=== PATIENT | female | born 1955 | race Caucasian/White ===

== ENCOUNTER 2016-11-24 23:00 | Inpatient (IN) | payer BC, MEDICARE ==
--- NOTE | ~2016-11-24 | DS ---
Discharge Summary [facility] [address] [facility] [place]. [address] NAME: FRANK ARNOLD : 51 STATUS : ADM IN [facility]#: [id number] AGE: 61 ADM/REG DATE : 11/24/16 MR#: [id number] REPORT SERV DATE: 11/27/16 DICTATED BY: Agnieszka IBARRA DATE: 11/27/16 REPORT STATUS : Draft TRANSCRIBED BY: MODL DATE: 11/27/16 ADMISSION DATE: 11/24/2016 DISCHARGE DATE: 11/27/2016 DIAGNOSES AT DISCHARGE: Syncope; acute kidney injury, resolved; morbid obesity; chronic pain syndrome; hypertension; fibromyalgia; hypothyroidism; poorly controlled insulin-requiring diabetes. CONSULTS: None. PROCEDURES: Echocardiogram, carotid ultrasound. BRIEF HOSPITAL COURSE: A 61-year-old female patient was admitted with syncope and acute kidney injury, suspected secondary to orthostasis. The patient's home blood pressure medicine was held. She was gently hydrated with fluids. Echocardiogram showed intact left ventricular function. Carotid ultrasound was negative. The patient's followup labs showed persistently normalizing renal function. On 11/26, the patient did have a low-grade temp. Chest x-ray suggested some atelectasis. The patient had no further evidence of temp with a followup white count and procalcitonin that were normal. On 11/27, she was felt stable to discharge home on her current home medications with close outpatient followup with her primary care provider in approximately one to two weeks. We will recommend that she continue to stay off the lisinopril as her blood pressure currently is normal and this likely was the culprit behind not only her acute kidney injury, but likely that her syncope as well. DICTATED BY: Agnieszka Ibarra M.D. [facility]/DENISSE Agnieszka Ibarra M.D. / [id number] CC: Ky Nelson Jr, MD Punit Tiku Bhutwala, M.D.
--- NOTE | ~2016-11-24 | HP ---
History And Physical [place] [address] [facility] [place]. [address] NAME: FRANK CASTRO : 51 STATUS : ADM Arden PAT#: [id number] AGE: 61 ADM/REG DATE : 11/24/16 MR#: [id number] REPORT SERV DATE: 11/25/16 DICTATED BY: SHERIDAN BRAND DATE: 11/24/16 REPORT STATUS : Draft TRANSCRIBED BY: MODPrasad DATE: 11/24/16 DATE OF ADMISSION: 11/24/2016 POINT OF ENTRY: [facility] Emergency Department. PRIMARY PIANO PLAYER: Dr. Campbell. CHIEF COMPLAINT: Syncope. HISTORY OF PRESENT ILLNESS: Ms. Castro is a 61-year-old female with a history of insulin- dependent diabetes mellitus type 2, chronic pain on chronic narcotics, hypothyroidism, hypertension, and other medical comorbidities, who presents here today with acute onset of a syncopal episode. The patient states that she has had an upper respiratory tract infection with congestion, sneezing, and cough for the past three days. She also reports some subjective fevers and chills. She saw Dr. Rosa in clinic today. Temperature was reportedly afebrile and was prescribed some clindamycin as well as some mucolytics. The patient states that she went to bed as she was not feeling well and then awoke later in the evening feeling sick. She got into her wheelchair to go to the bathroom to have an episode of emesis and after that suffered a witnessed syncopal episode while sitting in her wheelchair. states that she was out for about two to three minutes despite physical stimulation. She denies any loss of bowel or bladder control. Denies any tonoclonic activity, but she was very lethargic and confused upon awakening from her syncopal episode. Initial evaluation in the emergency department notable for EKG that was unremarkable. Labs notable for a blood sugar of 548, creatinine of 2.02. She reportedly did not tilt on exam. She was given five units of IV insulin, some IV fluids for hyperglycemia, and admitted to the Hospitalist Service. The patient denies any recent chest pain, palpitations, shortness of breath, cough, sputum production, abdominal pain, dysuria, melena, hematochezia, hemoptysis, or hematemesis. The patient states that she consumed a milkshake prior to going to bed this afternoon but reports compliance with her insulin regimen and states that up until today her sugars have been well controlled. REVIEW OF SYSTEMS: Comprehensive review of system otherwise negative unless listed in history of present illness. PREVIOUS MEDICAL HISTORY: 1. Insulin-dependent diabetes mellitus, type 2. 2. Fibromyalgia. 3. Chronic pain syndrome, on chronic narcotics. 4. Hypertension. History And Physical [address] [address] NAME: FRANK CASTRO : 51 STATUS : ADM Ar[place] PAT#: [id number] AGE: 61 ADM/REG DATE : 11/24/16 MR#: [id number] REPORT SERV DATE: 11/25/16 DICTATED BY: SHERIDAN BRAND DATE: 11/24/16 REPORT STATUS : Draft TRANSCRIBED BY: DENISSE DATE: 11/24/16 5. Hypothyroidism. 6. Diabetic neuropathy. 7. Asthma. 8. Morbid obesity. 9. Depression. 10.Anxiety. 11.Functional paraplegia, wheelchair bound. 12.MGUS. 13.Pulmonary hypertension. SURGICAL HISTORY: 1. Cholecystectomy. 2. Abdominal hysterectomy. 3. Toe amputation. 4. Umbilical hernia repair. 5. . 6. Right total knee. ALLERGIES: 1. PENICILLIN. 2. CODEINE. 3. ASPIRIN. 4. TETRACYCLINE. 5. FLAGYL. 6. ROCEPHIN. 7. WASP VENOM. HOME MEDICATIONS: 1. Clindamycin 300 mg b.i.d. 2. Flexeril 5 mg b.i.d. 3. Trulicity 1.5 mg subcu weekly. 4. EpiPen p.r.n. 5. Mucinex 600 mg b.i.d. p.r.n. 6. NovoLog 100 units q.a.m. 7. NovoLog carb sliding scale. 8. Lantus 100 units b.i.d. 9. Lisinopril 40 mg daily. 10.MS Contin 30 mg b.i.d. 11.Nortriptyline 75 mg at bedtime. 12.Nortriptyline 75 mg p.r.n. 13.Roxicodone 5 mg q.i.d. p.r.n. 14.[place] Thyroid 180 mg daily. SOCIAL HISTORY: Denies any tobacco, alcohol, or illicits. FAMILY MEDICAL HISTORY: No for diabetes as well as coronary artery disease. History And Physical [address] [address] NAME: FRANK CASTRO : 51 STATUS : ADM Ar[place] PAT#: [id number] AGE: 61 ADM/REG DATE : 11/24/16 MR#: [id number] REPORT SERV DATE: 11/25/16 DICTATED BY: SHERIDAN BRAND DATE: 11/24/16 REPORT STATUS : Draft TRANSCRIBED BY: DENISSE DATE: 11/24/16 LABS AND IMAGIN. White count 6.8, hemoglobin is 11.0, hematocrit 33.8, and platelet count is 173. INR 1.4. 2. Sodium is 132, potassium 4.9, chloride 96, carbon dioxide 27, BUN 20, creatinine 2.02, glucose is 548, calcium is 8.9, and magnesium 1.9. 3. Troponin less than 0.02. 4. Urinalysis. Spec gravity is 1.017. Positive glucose. Negative ketones. Negative evidence of infection. 5. Chest x-ray per my review shows no acute cardiopulmonary abnormality. EKG per my review shows normal sinus rhythm with left axis deviation as well as intraventricular conduction delay which is unchanged compared to prior EKGs. No evidence of any acute ischemic infarction. PHYSICAL EXAMINATION: VITAL SIGNS: Temperature is 98.0 degrees Fahrenheit, pulse is 96, respirations 18, saturating 97% on room air. Blood pressure is 139/69, on recheck blood pressure is now 136/67. Pulse of 94. GENERAL: The patient is awake, alert, in no acute distress. Resting comfortably in bed. She is a morbidly obese female. is at bedside. HEENT: Atraumatic and normocephalic. Slightly dry mucous membranes. Pupils equal, round, and reactive to light and accommodation. Extraocular eye movements intact. No scleral icterus. NECK: No jugular venous distention. No carotid bruits. CARDIAC: Regular rate and rhythm. Faint 1/6 systolic murmur heard best over left lower sternal border. LUNGS: Clear to auscultation bilaterally. No wheezes, rhonchi, or crackles. ABDOMEN: Obese with presence of ventral hernia, but otherwise, soft, nontender, and nondistended with good bowel sounds. No rebound, guarding, or rigidity. EXTREMITIES: Warm and perfused. She has some chronic venous stasis type changes or stasis dermatitis. Trace lower extremity edema. SKIN: Warm and dry except for noted above. PSYCH: Affect appropriate. NEURO: Alert and oriented x3. Cranial nerves 2 through 12 grossly intact. Speech is normal. Gait not assessed. ASSESSMENT: Ms. Castro is a 61-year-old female who suffered a witnessed syncopal episode in her wheelchair in the setting of having some nausea and vomiting concerning for likely vasovagal syncope. PROBLEM LIST: 1. Syncope. 2. Uncontrolled insulin-dependent diabetes mellitus type 2 with hyperglycemia. 3. Acute kidney injury versus chronic kidney stage 3. 4. Chronic pain, on chronic narcotics. 5. Hypothyroidism. 6. Morbid obesity. 7. Functional paraplegia. History And Physical [address] [address] NAME: FRANK CASTRO : 51 STATUS : ADM Ar[place] PAT#: [id number] AGE: 61 ADM/REG DATE : 11/24/16 MR#: [id number] REPORT SERV DATE: 11/25/16 DICTATED BY: SHERIDAN BRAND DATE: 11/24/16 REPORT STATUS : Draft TRANSCRIBED BY: DENISSE DATE: 11/24/16 PLAN: 1. Syncope. Given the history this sounds like vasovagal syncope. However, the states that she was somewhat lethargic and confused upon awaking concerning for possible postictal type symptoms. We will check orthostatic vital signs, echocardiogram, carotid arterial Dopplers. Continue cardiac monitoring. Trend out cardiac enzymes. We will also order an EEG. 2. Uncontrolled insulin-dependent diabetes mellitus type 2 with hyperglycemia. The patient is on very high doses of insulin, which we will need to be confirmed in the morning by pharmacy. In the meantime, we will place the patient on insulin drip. Check hemoglobin A1c as well as diabetes consultation. 3. Acute kidney injury versus chronic kidney stage 3. Our last baseline creatinine for patient is from 2014, which showed a creatinine of 1.84. The patient is unable to tell me what her baseline creatinine is now. We will hold nephrotoxic medications, provide IV fluid hydration, and follow up repeat in the morning. 4. Chronic pain, on chronic narcotics. Continue the patient's home narcotics. We will hold for sedation. 5. DVT prophylaxis. Lovenox subcu. CODE STATUS: The patient wished to be full code. JCB/MODL Sheridan Brand MD / [id number] CC: Ky Nelson Jr, MD Punit Tiku Bhutwala, M.D.
[2016-11-24 22:28] LABS: BASOPHILS 0.1 %; BASOPHILS ABSOLUTE 0.01 10/3/uL (0.0-0.16); EOSINOPHILS ABSOLUTE 0.07 10/3/uL (0.0-0.53); ER CBC TAT 0 Hrs 05 Mins; HEMATOCRIT 33.8 % (36.0-48.0); IMMATURE GRANULOCYTES 0.1 %; IMMATURE GRANULOCYTES ABSOLUTE 0.01 10/3/uL (0.0-0.11); LYMPHOCYTES 22.6 %; LYMPHOCYTES ABSOLUTE 1.54 10/3/uL (0.67-4.30); MEAN CORPUS HGB CONC 32.5 g/dL (32.0-36.0); MEAN CORPUSCULAR HEMOGLOB 29.3 pg (26.0-34.0); MEAN PLATELET VOLUME 9.5 fL (9.2-13.0); MONOCYTES 9.5 %; MONOCYTES ABSOLUTE 0.65 10/3/uL (0.21-1.20); NEUTROPHILS 66.7 %; NEUTROPHILS ABSOLUTE 4.54 10/3/uL (2.02-8.40); PLATELET COUNT 173 10/3/uL (150-400); RBC DISTRIBUTION WIDTH 13.6 % (12.0-16.0); RED CELL COUNT 3.76 10/6/uL (4.0-5.6); WHITE BLOOD CELLS 6.8 10/3/uL (4.5-10.5)
[2016-11-24 22:29] LABS: MANUAL DIFF NO %; MEAN CORPUSCULAR VOLUME 89.9 fL (80-100)
[2016-11-24 22:35] LABS: INTERNATIONAL NORMAL RATI 1.4 UNITS (-); PARTIAL THROMBO TIME 33.4 SEC (22.5-37.2); PROTIME (NOT ORD) 16.6 SEC (12.0-14.5)
[2016-11-24 22:36] LABS: ASCORBIC ACID (UR NOT ORDER) NEG (NEG); BILIRUBIN, URINE NEGATIVE (NEG); ER URINALYSIS TAT 0 Hrs 13 Mins; KETONE, URINE NEGATIVE (NEG); LEUKOCYTE ESTERASE(NOT OR NEG (NEG); NITRITE (URINE) NEG (NEG); WBC (NOT ORDERED) (RFLEX) 3 (0-5)
[2016-11-24 22:45] LABS: BUN (BLOOD UREA NITROGEN) 28 MG/DL (6-23); CALCIUM, SERUM 8.9 MG/DL (8.5-10.4); CHEST PAIN PROFILE TAT 0 Hrs 22 Mins; CHLORIDE, SERUM 96 MMOL/L (96-112); CO2 (CARBON DIOXIDE) 27 MMOL/L (24-34); CREATININE 2.02 MG/DL (0.55-1.02); GFR AFRICAN AMERICAN 30 ML/MIN (>=60); GFR NON AFRICAN AMERICAN 26 ML/MIN (>=60); GLUCOSE, SERUM 548 MG/DL (60-99); POTASSIUM, SERUM 4.9 MMOL/L (3.5-5.3); SODIUM, SERUM 132 MMOL/L (135-148); TROPONIN I <0.02 NG/ML (<0.05)
[~2016-11-24 23:00] MED LIST: *UNABLE3; AVANDAMET PO; HUMALOG; HUMALOGPEN SC; HYGROTON 25 MG25 MG PO; KLONO2 PO; LANTUS; LANTUS SC; LANTUSCART SC; LEVOTHYROXIN200 MCG PO; LEVOTHYROXINE PO; LIPITOR40 PO; LISINOPRIL40 MG PO; MAGOX4 PO; MSCONT15 PO; MSCONTIN PO; NEUR800 PO; NOR25 PO; PCET PO; PERCOCET1 TA4 PO; PREM625 PO; PRIN10 PO; SYN125 PO; V5 PO; VALIUM10 MG PO; WELLXL300 PO
[2016-11-24] MEDS ORDERED: CLEOCIN300 MG PO (23:05)
[2016-11-24] MEDS ORDERED: FLEXERIL5 MG PO (23:06)
[2016-11-24] MEDS ORDERED: TRULICITY1.5 MG/0.5 SC (23:06)
[2016-11-24] MEDS ORDERED: MSCONTIN PO (23:07)
[2016-11-24] MEDS ORDERED: NOR75 PO ×2 (23:08)
[2016-11-24] MEDS ORDERED: OXYCOD PO (23:09)
[2016-11-24] MEDS ORDERED: ARMOUR THYRO180 MG PO (23:09)
[2016-11-24] MEDS ORDERED: NOVOPEN SC ×2 (23:10→23:11)
[2016-11-24] MEDS ORDERED: LISINOPRIL40 MG PO (23:12)
[2016-11-24] MEDS ORDERED: LANTUS SC (23:12)
[2016-11-24] MEDS ORDERED: MUCINEX600 MG PO (23:14)
[2016-11-24] MEDS ORDERED: EPIPEN0.3 IM (23:17)
[2016-11-25 06:35] LABS: BASOPHILS 0.2 %; BASOPHILS ABSOLUTE 0.01 10/3/uL (0.0-0.16); EOSINOPHILS 1.6 %; EOSINOPHILS ABSOLUTE 0.09 10/3/uL (0.0-0.53); HEMOGLOBIN 10.6 g/dL (12.0-16.0); IMMATURE GRANULOCYTES 0.2 %; IMMATURE GRANULOCYTES ABSOLUTE 0.01 10/3/uL (0.0-0.11); LYMPHOCYTES 35.8 %; LYMPHOCYTES ABSOLUTE 2.05 10/3/uL (0.67-4.30); MEAN CORPUS HGB CONC 33.1 g/dL (32.0-36.0); MEAN CORPUSCULAR HEMOGLOB 29.6 pg (26.0-34.0); MEAN CORPUSCULAR VOLUME 89.4 fL (80-100); MEAN PLATELET VOLUME 9.6 fL (9.2-13.0); MONOCYTES 13.8 %; MONOCYTES ABSOLUTE 0.79 10/3/uL (0.21-1.20); NEUTROPHILS 48.4 %; NEUTROPHILS ABSOLUTE 2.77 10/3/uL (2.02-8.40); PLATELET COUNT 165 10/3/uL (150-400); RBC DISTRIBUTION WIDTH 13.4 % (12.0-16.0); RED CELL COUNT 3.58 10/6/uL (4.0-5.6); WHITE BLOOD CELLS 5.7 10/3/uL (4.5-10.5)
[2016-11-25 06:36] LABS: MANUAL DIFF NO %
[2016-11-25 06:56] LABS: ALBUMIN 2.7 G/DL (3.5-5.0); BUN (BLOOD UREA NITROGEN) 27 MG/DL (6-23); CALCIUM, SERUM 8.9 MG/DL (8.5-10.4); CHLORIDE, SERUM 104 MMOL/L (96-112); CK-MB 1.1 NG/ML; CO2 (CARBON DIOXIDE) 24 MMOL/L (24-34); CPK 26 U/L (0-200); CREATININE 1.49 MG/DL (0.55-1.02); FREE T4 0.93 NG/DL (0.76-1.46); GFR AFRICAN AMERICAN 43 ML/MIN (>=60); GFR NON AFRICAN AMERICAN 37 ML/MIN (>=60); GLUCOSE, SERUM 191 MG/DL (60-99); PHOSPHORUS, SERUM 3.2 MG/DL (2.5-4.5); POTASSIUM, SERUM 4.3 MMOL/L (3.5-5.3); SODIUM, SERUM 137 MMOL/L (135-148); TROPONIN I <0.02 NG/ML (<0.05); ULTRASENSITIVE TSH 0.054 MCIU/ML (0.358-3.740)
[2016-11-25 08:07] LABS: CREATININE, URINE 93.8 MG/DL
[2016-11-25 14:40] LABS: CPK 25 U/L (0-200); TROPONIN I <0.02 NG/ML (<0.05)
[2016-11-25 14:41] LABS: CK-MB < 0.5 NG/ML
[2016-11-26 06:29] LABS: BASOPHILS 0.2 %; BASOPHILS ABSOLUTE 0.01 10/3/uL (0.0-0.16); EOSINOPHILS 1.2 %; EOSINOPHILS ABSOLUTE 0.08 10/3/uL (0.0-0.53); HEMATOCRIT 35.2 % (36.0-48.0); HEMOGLOBIN 11.7 g/dL (12.0-16.0); IMMATURE GRANULOCYTES 0.2 %; IMMATURE GRANULOCYTES ABSOLUTE 0.01 10/3/uL (0.0-0.11); LYMPHOCYTES ABSOLUTE 2.19 10/3/uL (0.67-4.30); MEAN CORPUS HGB CONC 33.2 g/dL (32.0-36.0); MEAN CORPUSCULAR HEMOGLOB 29.9 pg (26.0-34.0); MEAN PLATELET VOLUME 9.5 fL (9.2-13.0); MONOCYTES 7.4 %; MONOCYTES ABSOLUTE 0.48 10/3/uL (0.21-1.20); NEUTROPHILS ABSOLUTE 3.68 10/3/uL (2.02-8.40); PLATELET COUNT 177 10/3/uL (150-400); RBC DISTRIBUTION WIDTH 13.5 % (12.0-16.0); RED CELL COUNT 3.91 10/6/uL (4.0-5.6); WHITE BLOOD CELLS 6.5 10/3/uL (4.5-10.5)
[2016-11-26 06:31] LABS: MANUAL DIFF NO %
[2016-11-26 06:44] LABS: CALCIUM, SERUM 9.1 MG/DL (8.5-10.4); CHLORIDE, SERUM 102 MMOL/L (96-112); CO2 (CARBON DIOXIDE) 25 MMOL/L (24-34); CREATININE 1.18 MG/DL (0.55-1.02); GFR AFRICAN AMERICAN 57 ML/MIN (>=60); GFR NON AFRICAN AMERICAN 49 ML/MIN (>=60); GLUCOSE, SERUM 176 MG/DL (60-99); POTASSIUM, SERUM 5.1 MMOL/L (3.5-5.3); SODIUM, SERUM 134 MMOL/L (135-148)
[2016-11-26 06:45] LABS: BUN (BLOOD UREA NITROGEN) 18 MG/DL (6-23)
[2016-11-26 22:12] LABS: ASCORBIC ACID (UR NOT ORDER) NEG (NEG); BILIRUBIN, URINE NEGATIVE (NEG); KETONE, URINE NEGATIVE (NEG); LEUKOCYTE ESTERASE(NOT OR NEG (NEG); WBC (NOT ORDERED) (RFLEX) 3 (0-5)
[2016-11-27 05:40] LABS: BASOPHILS 0.2 %; BASOPHILS ABSOLUTE 0.01 10/3/uL (0.0-0.16); EOSINOPHILS 2.3 %; EOSINOPHILS ABSOLUTE 0.15 10/3/uL (0.0-0.53); HEMATOCRIT 32.2 % (36.0-48.0); HEMOGLOBIN 10.6 g/dL (12.0-16.0); IMMATURE GRANULOCYTES 0.2 %; IMMATURE GRANULOCYTES ABSOLUTE 0.01 10/3/uL (0.0-0.11); LYMPHOCYTES 54.5 %; LYMPHOCYTES ABSOLUTE 3.55 10/3/uL (0.67-4.30); MEAN CORPUS HGB CONC 32.9 g/dL (32.0-36.0); MEAN CORPUSCULAR HEMOGLOB 29.4 pg (26.0-34.0); MEAN CORPUSCULAR VOLUME 89.4 fL (80-100); MEAN PLATELET VOLUME 9.4 fL (9.2-13.0); MONOCYTES 12.3 %; NEUTROPHILS 30.5 %; NEUTROPHILS ABSOLUTE 1.99 10/3/uL (2.02-8.40); PLATELET COUNT 167 10/3/uL (150-400); RBC DISTRIBUTION WIDTH 14.1 % (12.0-16.0); WHITE BLOOD CELLS 6.5 10/3/uL (4.5-10.5)
[2016-11-27 05:42] LABS: MANUAL DIFF NO %
[2017-03-21] MEDS ORDERED: EPIPEN0.3 IM (06:23)
[2017-03-21] MEDS ORDERED: FLEXERIL5 MG PO (06:23)
[2017-03-21] MEDS ORDERED: NOVOPENMIX SC (06:24)
[2017-03-21] MEDS ORDERED: LANTUS SC (06:25)
[2017-03-21] MEDS ORDERED: NOVOLOGMIX SC (06:25)
[2017-03-21] MEDS ORDERED: OXYCOD PO (06:26)
[2017-03-21] MEDS ORDERED: NOR75 PO (06:26)
[2017-03-21] MEDS ORDERED: ARMOUR THYRO180 MG PO (06:27)
[2017-03-21] MEDS ORDERED: LYRICA100 MG PO (06:27)
[2017-03-23] MEDS ORDERED: INSNOVR SC (11:26)
[2017-03-23] MEDS ORDERED: ASAB PO (11:27)
[2017-03-23] MEDS ORDERED: NOVOLOG SQ (11:28)
== END 2016-11-27 17:29 | disposition home or self-care (01) | DRG 683 ==
LOC: ER 23:00 → 5NO 23:59
PROVIDERS: Emergency Medicine; Internal Medicine
DX: N17.9 Acute kidney failure, unspecified (principal); Z68.41 Body mass index [BMI] 40.0-44.9, adult; I95.2 Hypotension due to drugs; I27.2 Other secondary pulmonary hypertension; E11.65 Type 2 diabetes mellitus with hyperglycemia; E66.01 Morbid (severe) obesity due to excess calories; N18.3 Chronic kidney disease, stage 3 (moderate); R55 Syncope and collapse; Z79.4 Long term (current) use of insulin; G89.4 Chronic pain syndrome; Z79.891 Long term (current) use of opiate analgesic; E03.9 Hypothyroidism, unspecified; M79.7 Fibromyalgia; F32.9 Major depressive disorder, single episode, unspecified; F41.9 Anxiety disorder, unspecified; Z90.49 Acquired absence of other specified parts of digestive tract; Z90.710 Acquired absence of both cervix and uterus; Z96.651 Presence of right artificial knee joint; Z88.1 Allergy status to other antibiotic agents; Z88.0 Allergy status to penicillin; I12.9 Hypertensive chronic kidney disease with stage 1 through stage 4 chronic kidney disease, or unspecified chronic kidney disease; T46.4X5A Adverse effect of angiotensin-converting-enzyme inhibitors, initial encounter
CPT/HCPCS: 71010; 80048; 80069; 81001; 82550; 82553; 82570; 82962; 83036; 83735; 83935; 84145; 84300; 84439; 84443; 84484; 85025; 85610; 85730; 87070; 87205; 93005; 93306; 93880; 96374; 99285; A9270-GY

== ENCOUNTER 2016-12-09 23:01 | Inpatient (IN) | payer BC, MEDICARE ==
--- NOTE | ~2016-12-09 | DS ---
Discharge Summary [facility] [address] [place]. [address] NAME: FRANK ARNOLD : 51 STATUS : DIS IN PAT#: [id number] AGE: 61 ADM/REG DATE : 12/10/16 MR#: [id number] REPORT SERV DATE: 12/21/16 DICTATED BY: JR. NELSON WILLIAM JOHN DATE: 12/20/16 REPORT STATUS : Draft TRANSCRIBED BY: DENISSE DATE: 12/20/16 ADMISSION DATE: 12/10/2016 DISCHARGE DATE: 12/20/2016 DISCHARGE DIAGNOSES: Include: 1. Left heel wound. 2. Uncontrolled diabetes mellitus type 2. 3. Essential hypertension. 4. Chronic kidney disease stage III. 5. Chronic pain syndrome. CONSULTING PHYSICIAN: Dr. Sandoval of Wound Surgery. OPERATIONS/PROCEDURES AND TREATMENTS: Include: 1. Bedside debridement by Dr. Sandoval. 2. Portable chest x-ray done, 12/09/2016, which showed no acute cardiopulmonary process. 3. Left foot x-ray done, 12/09/2016, which showed extensive surgical changes of left foot, including amputation of the first and second digits to the metatarsal head. There is no acute bony abnormality appreciated, involving the remaining left foot. There is diffuse bony demineralization. 4. Arterial Doppler ultrasound of the right lower extremity showed no medium or large arterial stenosis of significance or occlusion on this limb. This does not, however, exclude small vessel disease. DISCHARGE MEDICATIONS: Include: 1. Lovenox 40 mg subcutaneously daily. 2. Flonase two sprays in each nostril twice a day. 3. Sliding scale Humalog insulin level 3. 4. Claritin 10 mg orally daily. 5. Morphine sustained release 30 mg twice a day. 6. Nortriptyline 75 mg orally twice a day. 7. Protonix 40 mg orally daily. 8. Trulicity 1.5 mg subcutaneously every seven days. 9. Thyroid 180 mg orally daily. 10.Levemir insulin 100 units twice a day. 11.Tylenol 650 mg every four hours as needed. 12.Mylanta 30 mL orally every four hours p.r.n. 13.Calcium carbonate 500 mg orally at bedtime p.r.n. 14.Flexeril 5 mg orally twice a day as needed. HOSPITAL COURSE: The patient is a 61-year-old white female with a history of poorly controlled diabetes mellitus with associated neuropathy, who presented to the emergency room with one-week history of left calcaneal foot wound. The patient had been admitted to [facility] earlier in the month for a syncopal episode, felt to be vasovagal or orthostatic. Her lisinopril was discontinued. She at that time was also on an insulin drip with blood sugars greater than 500. Her A1c was 10.1. She was subsequently discharged Discharge Summary [address] [place]. [address] NAME: FRANK ARNOLD : 51 STATUS : DIS IN PAT#: [id number] AGE: 61 ADM/REG DATE : 12/10/16 MR#: [id number] REPORT SERV DATE: 12/21/16 DICTATED BY: JR. NELSON WILLIAM JOHN DATE: 12/20/16 REPORT STATUS : Draft TRANSCRIBED BY: DENISSE DATE: 12/20/16 home. She said she bought a new pair of shoes that apparently did not fit her properly since her recent ankle fusion. She developed a blister followed by purulent drainage and presented to the emergency room. On initial exam, her temperature was 97.5, blood pressure was 157/88, heart rate 96, respiratory rate of 18. She was in no acute distress. She did have dorsalis pedis and posterior tibialis pulses intact on both legs. She had a necrotic pressure ulcer in the calcaneal region of her left foot. The patient was admitted to the hospital. She had an arterial Doppler study, which is detailed above. She was placed on empiric Levaquin and was seen in consultation by Wound Care, Dr. Sandoval. Dr. Sandoval performed bedside debridement and recommended dressing changes and offloading. The patient was fitted with her boot. The patient is somewhat debilitated and will go to rehabilitation for further wound care and strengthening. The patient had total antibiotic course of nine days. This was discontinued as there was no evidence of current infection. Regarding the patient's diabetes mellitus type 2, her blood sugars have been fairly well controlled in the 120-170 range predominantly on the above regimen. Regarding the patient's hypertension, it has been well-controlled on no antihypertensives. The remainder of the patient's health problems remained stable. She will be discharged to [facility] today, 12/20/2016 in good condition. DISCHARGE DIET: ADA. ACTIVITY: As tolerated. For discharge exam and laboratory, please see daily progress note. This discharge took 33 minutes for patient encounter, coordination of care, and documentation. DICTATED BY: Ky Nelson Jr, MD WJF/MODL Ky Nelson Jr, MD / [id number] CC: Ky Nelson Jr, MD Punit Tiku Bhutwala, M.D.
--- NOTE | ~2016-12-09 | HP ---
History And Physical [facility] [address] [facility] [place]. [address] NAME: FRANK CASTRO : 51 STATUS : REG ER PAT#: [id number] AGE: 61 ADM/REG DATE : 12/09/16 MR#: [id number] REPORT SERV DATE: 12/10/16 DICTATED BY: SHERIDAN BRAND DATE: 12/10/16 REPORT STATUS : Draft TRANSCRIBED BY: MODPrasad DATE: 12/10/16 DATE OF ADMISSION: 12/09/2016 POINT OF ENTRY: [facility] Emergency Department. PRIMARY CARE PHYSICIAN: Dev Rosa M.D. CHIEF COMPLAINT: Left foot wound. HISTORY OF PRESENT ILLNESS: Ms. Castro is a 61-year-old female with a history of poorly controlled insulin-dependent diabetes mellitus type 2 with associated diabetic neuropathy, morbid obesity, hypertension, hyperthyroidism, and other medical comorbidities who presents to emergency room today with a report of a one-week history of a left calcaneal foot wound. The patient was recently admitted to the Hospitalist Service in earlier this month for a witnessed syncopal episode. Ultimately, it was felt to be due to vasovagal or orthostasis and her lisinopril was discontinued. She had to be placed on insulin drip initially for blood sugar greater than 500, A1c came out of 10.6, and she was subsequently discharged to home. The patient states that she bought a new pair of shoes, that unfortunately due to previous ankle fusion did not fit her left foot properly and she subsequently developed a blister in the calcaneal region of her left foot. This blister has subsequently progressed to now a large area of, what appears to be, a pressure necrosis ulcer along the calcaneal region of the left foot. The patient reports some subjective fevers and chills, but has not checked her temperature. She does report some purulent drainage when the blister pops, but none recently. Initial evaluation in the emergency department was notable for stable vital signs. White count is normal at 9.7. Urinalysis is positive for urinary tract infection. She was subsequently placed on IV vancomycin and admitted to the Hospitalist Service. REVIEW OF SYSTEMS: Comprehensive review of systems otherwise negative unless listed in history of present illness. PREVIOUS MEDICAL HISTORY: 1. Uncontrolled insulin-dependent diabetes mellitus type 2, hemoglobin A1c of 10.6. 2. Hypertension. 3. Hypothyroidism. 4. Chronic pain, on chronic narcotics. 5. Fibromyalgia. 6. Morbid obesity. 7. Asthma. 8. Anxiety. 9. Depression. History And Physical [address] [place]. [address] NAME: FRANK CASTRO : 51 STATUS : REG ER PAT#: [id number] AGE: 61 ADM/REG DATE : 12/09/16 MR#: [id number] REPORT SERV DATE: 12/10/16 DICTATED BY: SHERIDAN BRAND DATE: 12/10/16 REPORT STATUS : Draft TRANSCRIBED BY: DENISSE DATE: 12/10/16 10.Pulmonary hypertension. 11.Functional paraplegia. 12.Diabetic neuropathy. 13.Chronic kidney disease, stage 3, baseline creatinine approximately 1.2 to 1.4. SURGICAL HISTORY: 1. Cholecystectomy. 2. Abdominal hysterectomy. 3. . 4. Umbilical hernia repair. 5. Left first and second toe amputation. 6. Right total knee. ALLERGIES: 1. PENICILLIN. 2. CODEINE. 3. ASPIRIN. 4. TETRACYCLINE. 5. FLAGYL. 6. ROCEPHIN. 7. BEE STING. HOME MEDICATIONS: 1. Flexeril 5 mg b.i.d. p.r.n. 2. Trulicity 1.5 mg subcutaneously every week. 3. EpiPen 0.3 mg IM p.r.n. 4. NovoLog 100 units q.a.m. 5. NovoLog sliding scale. 6. Lantus 100 units b.i.d. 7. [place] Contin 30 mg b.i.d. 8. Nortriptyline 75 mg b.i.d. 9. Oxycodone 5 mg q.i.d. p.r.n. 10.[place] Thyroid 180 mg daily. SOCIAL HISTORY: Denies any tobacco, alcohol, or illicits. FAMILY HISTORY: Notable for diabetes and coronary artery disease. LABS AND IMAGIN. White count is 9.7, hemoglobin 12.5, hematocrit 36.3, platelet count is 288. 2. Sodium is 138, potassium 4.0, chloride 104, carbon dioxide 29, BUN 21, creatinine 1.29, glucose is 78, calcium is 9.2, protein is 8.6, albumin is 3.4, bilirubin is 0.3, ALT is 27, AST 28, alkaline phosphatase is 133. 3. CRP 7.4. 4. Urinalysis: Specific gravity is 1.017, hazy with small leukocyte esterase with 16 white blood cells per high field with occasional bacteria. 5. Chest x-ray per my review shows no acute cardiopulmonary abnormality. History And Physical [address] [address] NAME: FRANK CASTRO : 51 STATUS : REG ER PAT#: [id number] AGE: 61 ADM/REG DATE : 12/09/16 MR#: [id number] REPORT SERV DATE: 12/10/16 DICTATED BY: SHERIDAN BRAND DATE: 12/10/16 REPORT STATUS : Draft TRANSCRIBED BY: DENISSE DATE: 12/10/16 6. Left foot plain films do not show any obvious evidence of osteomyelitis per my review. Follow up formal read. PHYSICAL EXAMINATION: VITAL SIGNS: Temperature is 97.5 degrees Fahrenheit, pulse is 96, respirations 18, saturating 96% on room air, blood pressure 157/88. GENERAL: Patient is awake, alert, in no acute distress. Resting comfortably. She is a well-developed, well-nourished, morbidly obese, female. HEENT: Atraumatic and normocephalic. Moist mucous membranes. Pupils are equal, round, reactive to light and accommodation. Extraocular eye movements intact. No scleral icterus. NECK: No jugular venous distention. No carotid bruits. CARDIAC: Regular rate and rhythm. No murmurs, rubs, or gallops. Normal S1, S2. LUNGS: Clear to auscultation bilaterally. No wheezes, rhonchi, or crackles. ABDOMEN: Obese, soft, nontender, nondistended. Good bowel sounds. No rebound, guarding, or rigidity. EXTREMITIES: Warm, well perfused. She has 1 to 2+ DP and PT pulses bilaterally. On the left, she has, what appears to be, a gangrenous pressure wound over the calcaneal region with no obvious tissue breakdown or purulent drainage. No palpable fluid collection. SKIN: Warm and dry except for noted above. PSYCH: Affect appropriate. NEURO: Alert and oriented x3. Cranial nerves II through XII grossly intact. Speech is normal. Gait not assessed. ASSESSMENT AND PLAN: Ms. Castro is a 61-year-old female who presents with a left foot gangrenous wound and also found to have evidence of urinary tract infection. PROBLEM LIST: 1. Left calcaneal diabetic necrotic wound. 2. Urinary tract infection. 3. Uncontrolled insulin-dependent diabetes mellitus type 2. 4. Morbid obesity. 5. Functional paraplegia. PLAN: 1. Left diabetic necrotic wound. We will check arterial Doppler to ensure she has good blood flow to that foot. She does have good pulses on exam. It does appear to be more of a pressure wound. We will place patient on IV antibiotics and consult Podiatry for assistance. 2. Urinary tract infection. We will also add on IV Levaquin given her cephalosporin and penicillin allergies to cover urinary tract infection. Follow up urine culture. 3. Uncontrolled insulin-dependent diabetes mellitus type 2. Continue patient's home Lantus, place patient on a reduced NovoLog administration as well as a level-two sliding scale. 4. DVT prophylaxis, Lovenox subcutaneously. CODE STATUS: Patient wishes to be full code. History And Physical [address] [address] NAME: FRANK CASTRO : 51 STATUS : REG ER PAT#: [id number] AGE: 61 ADM/REG DATE : 12/09/16 MR#: [id number] REPORT SERV DATE: 12/10/16 DICTATED BY: SHERIDAN BRAND DATE: 12/10/16 REPORT STATUS : Draft TRANSCRIBED BY: DENISSE DATE: 12/10/16 SIMA/DENISSE Sheridan Brand MD / [id number] CC: Dev Rosa M.D.
--- NOTE | ~2016-12-09 | IDS ---
Interim Discharge Summary [facility] [address] [place]. [address] NAME: FRANK ARNOLD : 51 STATUS : ADM IN PAT#: [id number] AGE: 61 ADM/REG DATE : 12/10/16 MR#: [id number] REPORT SERV DATE: 12/18/16 DICTATED BY: VERA CANO DATE: 12/18/16 REPORT STATUS : Draft TRANSCRIBED BY: MODL DATE: 12/18/16 ADMISSION DATE: 12/10/2016 DISCHARGE DATE: Admission date was 12/10/2016. Date of discharge is unknown. Date of interim note is 12/18/2016. INTERIM DIAGNOSES: 1. Left heel wound, completed antibiotics. 2. Diabetes mellitus type 2, uncontrolled. Blood sugar stable at this time. 3. Hypertension, stable. BP 137/63. 4. Chronic kidney disease, stable. 5. Chronic pain syndrome, stable. CONSULTATION: Surgery, Dr. Sandoval. IMAGIN. Chest x-ray, 12/09/2016, impression: No acute cardiopulmonary disease. 2. 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 No acute body abnormality appreciated involving the left foot. 3. Arterial Doppler, 12/11/2016, impression: Exam includes medium to left arterial stenosis of significance or occlusion. This does not exclude, however, small vessel disease. LABORATORY DATA: 12/17/2016, sodium is 135, potassium is 4.1, chloride is 100, carbon dioxide is 28, BUN is 13, creatinine is 1.32, glucose is 148, and calcium is 8.6. Cultures: Left heel culture, rare wbc's. Blood cultures negative x1 day growth. COURSE OF HOSPITAL STAY: Please refer to history and physical dictated by Dr. Demian Pena on 12/10/2016 for complete admission details as well as consultation note by Dr. Sandoval. This patient is a 61-year-old female who presented to [facility] Emergency Room with complaints of left wound nonhealing. The patient does present with a history of uncontrolled insulin-dependent diabetes type 2 associated with diabetic neuropathy, morbid obesity, hypertension, hyperthyroidism, and medical comorbidities. The patient stated area appeared on the left heel approximately four to five weeks prior to this admission, noted at that time started as a blister, and then progressed to a large black necrotic ulcer. The patient denied any fever or chills upon admission. 1. Left heel wound. As noted above, imaging was obtained as well as surgical consult. The patient's wound was debrided at bedside by Dr. Sandoval. Wound care has been continued to be provided. The patient was initially started on antibiotics. Did complete a nine- day course of antibiotics. This was discontinued today. Wound cultures grew rare wbc's. Blood cultures are negative. The patient has been followed by Physical Therapy, and we will plan to discharge to rehab when approved. 2. Diabetes mellitus type 2, uncontrolled. As noted above, the patient's blood sugar has Interim Discharge Summary [address] [place]. [address] NAME: FRANK ARNOLD : 51 STATUS : ADM IN [facility]#: [id number] AGE: 61 ADM/REG DATE : 12/10/16 MR#: [id number] REPORT SERV DATE: 12/18/16 DICTATED BY: VERA CANO DATE: 12/18/16 REPORT STATUS : Draft TRANSCRIBED BY: DENISSE DATE: 12/18/16 been difficult for her to control at home. During her hospital stay, she is on Levemir 100 units subcu twice daily as well as NovoLog sliding scale level 3. Blood sugars have remained stable during her hospital stay. 3. Chronic kidney disease. The patient has been noted with chronic kidney disease. This has remained stable as well this hospital stay. BUN is 13, creatinine is 1.32. 4. Chronic pain syndrome. The patient states that she follows a pain management group, but the patient does state that she has history of neuropathy. At this time, she is stating that pain has been controlled. The patient's MS Contin 30 mg twice daily has been continued during her hospital stay. DISCHARGE PLANNING: fitness manager is working with patient regarding discharge planning. The patient has requested [employer] insurance. We are awaiting insurance approval. The patient has also requested a new primary care which family service caseworker will provide prior to discharge. [facility]/DENISSE Vera Cano NP / [phone]
[2016-12-09 22:59] LABS: BASOPHILS 0.1 %; BASOPHILS ABSOLUTE 0.01 10/3/uL (0.0-0.16); EOSINOPHILS 1.5 %; EOSINOPHILS ABSOLUTE 0.15 10/3/uL (0.0-0.53); HEMATOCRIT 36.3 % (36.0-48.0); HEMOGLOBIN 12.5 g/dL (12.0-16.0); IMMATURE GRANULOCYTES 0.3 %; IMMATURE GRANULOCYTES ABSOLUTE 0.03 10/3/uL (0.0-0.11); LYMPHOCYTES 39.4 %; LYMPHOCYTES ABSOLUTE 3.82 10/3/uL (0.67-4.30); MANUAL DIFF NO %; MEAN CORPUS HGB CONC 34.4 g/dL (32.0-36.0); MEAN CORPUSCULAR HEMOGLOB 30.6 pg (26.0-34.0); MEAN CORPUSCULAR VOLUME 88.8 fL (80-100); MEAN PLATELET VOLUME 9.3 fL (9.2-13.0); MONOCYTES 5.9 %; MONOCYTES ABSOLUTE 0.57 10/3/uL (0.21-1.20); NEUTROPHILS 52.8 %; NEUTROPHILS ABSOLUTE 5.12 10/3/uL (2.02-8.40); PLATELET COUNT 218 10/3/uL (150-400); RBC DISTRIBUTION WIDTH 13.6 % (12.0-16.0); RED CELL COUNT 4.09 10/6/uL (4.0-5.6); WHITE BLOOD CELLS 9.7 10/3/uL (4.5-10.5)
[~2016-12-09 23:01] MED LIST changes: +ARMOUR THYRO180 MG PO; +CLEOCIN300 MG PO; +EPIPEN0.3 IM; +FLEXERIL5 MG PO; +MUCINEX600 MG PO; +NOR75 PO; +NOVOPEN SC; +OXYCOD PO; +TRULICITY1.5 MG/0.5 SC
[2016-12-09 23:14] LABS: BUN (BLOOD UREA NITROGEN) 21 MG/DL (6-23); CALCIUM, SERUM 9.2 MG/DL (8.5-10.4); CHLORIDE, SERUM 104 MMOL/L (96-112); CO2 (CARBON DIOXIDE) 29 MMOL/L (24-34); CREATININE 1.29 MG/DL (0.55-1.02); GFR AFRICAN AMERICAN 51 ML/MIN (>=60); GFR NON AFRICAN AMERICAN 44 ML/MIN (>=60); SGOT(AST) 28 U/L (5-40); SGPT(ALT) 27 U/L (5-65); SODIUM, SERUM 138 MMOL/L (135-148); TOTAL BILIRUBIN 0.3 MG/DL (0-1.2); TOTAL PROTEIN 8.6 G/DL (6.0-8.5)
[2016-12-09 23:20] LABS: A/G RATIO 0.7 (0.7-1.9); ALBUMIN 3.4 G/DL (3.5-5.0); ALKALINE PHOSPHATASE 133 U/L (45-117); C-REACTIVE PROTEIN 7.4 MG/L (<8.0); GLOBULIN 5.2 G/DL (2.5-4.1); GLUCOSE, SERUM 78 MG/DL (60-99)
[2016-12-09 23:38] LABS: PROCALCITONIN 0.08 ng/mL (<0.5)
[2016-12-10 00:10] LABS: ASCORBIC ACID (UR NOT ORDER) NEG (NEG); BILIRUBIN, URINE NEGATIVE (NEG); ER URINALYSIS TAT 0 Hrs 00 Mins; KETONE, URINE NEGATIVE (NEG); LEUKOCYTE ESTERASE(NOT OR SMALL (NEG); NITRITE (URINE) NEG (NEG); WBC (NOT ORDERED) (RFLEX) 16 (0-5)
[2016-12-10 07:00] LABS: BASOPHILS 0.1 %; BASOPHILS ABSOLUTE 0.01 10/3/uL (0.0-0.16); EOSINOPHILS 1.6 %; EOSINOPHILS ABSOLUTE 0.12 10/3/uL (0.0-0.53); HEMATOCRIT 33.4 % (36.0-48.0); IMMATURE GRANULOCYTES 0.3 %; IMMATURE GRANULOCYTES ABSOLUTE 0.02 10/3/uL (0.0-0.11); LYMPHOCYTES 38.4 %; LYMPHOCYTES ABSOLUTE 2.85 10/3/uL (0.67-4.30); MEAN CORPUS HGB CONC 32.9 g/dL (32.0-36.0); MEAN CORPUSCULAR HEMOGLOB 29.6 pg (26.0-34.0); MEAN CORPUSCULAR VOLUME 89.8 fL (80-100); MEAN PLATELET VOLUME 9.3 fL (9.2-13.0); MONOCYTES 6.2 %; MONOCYTES ABSOLUTE 0.46 10/3/uL (0.21-1.20); NEUTROPHILS 53.4 %; NEUTROPHILS ABSOLUTE 3.97 10/3/uL (2.02-8.40); PLATELET COUNT 196 10/3/uL (150-400); RBC DISTRIBUTION WIDTH 13.7 % (12.0-16.0); RED CELL COUNT 3.72 10/6/uL (4.0-5.6); WHITE BLOOD CELLS 7.4 10/3/uL (4.5-10.5)
[2016-12-10 07:04] LABS: MANUAL DIFF NO %
[2016-12-10 07:15] LABS: BUN (BLOOD UREA NITROGEN) 20 MG/DL (6-23); CALCIUM, SERUM 8.9 MG/DL (8.5-10.4); CHLORIDE, SERUM 105 MMOL/L (96-112); CO2 (CARBON DIOXIDE) 25 MMOL/L (24-34); CREATININE 1.12 MG/DL (0.55-1.02); GFR AFRICAN AMERICAN 61 ML/MIN (>=60); GFR NON AFRICAN AMERICAN 52 ML/MIN (>=60); GLUCOSE, SERUM 138 MG/DL (60-99); POTASSIUM, SERUM 4.4 MMOL/L (3.5-5.3); SODIUM, SERUM 137 MMOL/L (135-148)
[2016-12-12 06:19] LABS: BASOPHILS 0 %; EOSINOPHILS 2.7 %; EOSINOPHILS ABSOLUTE 0.16 10/3/uL (0.0-0.53); HEMATOCRIT 32.5 % (36.0-48.0); HEMOGLOBIN 10.6 g/dL (12.0-16.0); IMMATURE GRANULOCYTES 0.3 %; IMMATURE GRANULOCYTES ABSOLUTE 0.02 10/3/uL (0.0-0.11); LYMPHOCYTES 41.4 %; LYMPHOCYTES ABSOLUTE 2.44 10/3/uL (0.67-4.30); MEAN CORPUS HGB CONC 32.6 g/dL (32.0-36.0); MEAN CORPUSCULAR HEMOGLOB 29.5 pg (26.0-34.0); MEAN CORPUSCULAR VOLUME 90.5 fL (80-100); MEAN PLATELET VOLUME 9.1 fL (9.2-13.0); MONOCYTES 8.3 %; MONOCYTES ABSOLUTE 0.49 10/3/uL (0.21-1.20); NEUTROPHILS 47.3 %; NEUTROPHILS ABSOLUTE 2.79 10/3/uL (2.02-8.40); PLATELET COUNT 180 10/3/uL (150-400); RBC DISTRIBUTION WIDTH 13.6 % (12.0-16.0); RED CELL COUNT 3.59 10/6/uL (4.0-5.6); WHITE BLOOD CELLS 5.9 10/3/uL (4.5-10.5)
[2016-12-12 06:20] LABS: MANUAL DIFF NO %
[2016-12-12 06:32] LABS: CHLORIDE, SERUM 105 MMOL/L (96-112); CO2 (CARBON DIOXIDE) 28 MMOL/L (24-34); CREATININE 1.19 MG/DL (0.55-1.02); GFR AFRICAN AMERICAN 56 ML/MIN (>=60); GFR NON AFRICAN AMERICAN 49 ML/MIN (>=60); POTASSIUM, SERUM 4.7 MMOL/L (3.5-5.3); SODIUM, SERUM 139 MMOL/L (135-148)
[2016-12-12 06:33] LABS: BUN (BLOOD UREA NITROGEN) 16 MG/DL (6-23); GLUCOSE, SERUM 191 MG/DL (60-99)
[2016-12-15 08:49] LABS: BASOPHILS 0.1 %; BASOPHILS ABSOLUTE 0.01 10/3/uL (0.0-0.16); EOSINOPHILS 2.4 %; EOSINOPHILS ABSOLUTE 0.16 10/3/uL (0.0-0.53); HEMOGLOBIN 11.8 g/dL (12.0-16.0); IMMATURE GRANULOCYTES 0.3 %; IMMATURE GRANULOCYTES ABSOLUTE 0.02 10/3/uL (0.0-0.11); LYMPHOCYTES 39.3 %; LYMPHOCYTES ABSOLUTE 2.67 10/3/uL (0.67-4.30); MEAN CORPUS HGB CONC 32.7 g/dL (32.0-36.0); MEAN CORPUSCULAR HEMOGLOB 29.2 pg (26.0-34.0); MEAN CORPUSCULAR VOLUME 89.4 fL (80-100); MEAN PLATELET VOLUME 9.3 fL (9.2-13.0); MONOCYTES 10.1 %; MONOCYTES ABSOLUTE 0.69 10/3/uL (0.21-1.20); NEUTROPHILS 47.8 %; NEUTROPHILS ABSOLUTE 3.25 10/3/uL (2.02-8.40); PLATELET COUNT 185 10/3/uL (150-400); RED CELL COUNT 4.04 10/6/uL (4.0-5.6); WHITE BLOOD CELLS 6.8 10/3/uL (4.5-10.5)
[2016-12-15 08:51] LABS: HEMATOCRIT 36.1 % (36.0-48.0); MANUAL DIFF NO %
[2016-12-15 09:01] LABS: BUN (BLOOD UREA NITROGEN) 14 MG/DL (6-23); CALCIUM, SERUM 9.3 MG/DL (8.5-10.4); CHLORIDE, SERUM 100 MMOL/L (96-112); CO2 (CARBON DIOXIDE) 28 MMOL/L (24-34); CREATININE 1.33 MG/DL (0.55-1.02); GFR AFRICAN AMERICAN 49 ML/MIN (>=60); GFR NON AFRICAN AMERICAN 42 ML/MIN (>=60); GLUCOSE, SERUM 214 MG/DL (60-99); POTASSIUM, SERUM 4.4 MMOL/L (3.5-5.3); SODIUM, SERUM 137 MMOL/L (135-148)
[2016-12-16 06:53] LABS: BASOPHILS 0.1 %; BASOPHILS ABSOLUTE 0.01 10/3/uL (0.0-0.16); EOSINOPHILS 2.3 %; EOSINOPHILS ABSOLUTE 0.18 10/3/uL (0.0-0.53); HEMOGLOBIN 11.5 g/dL (12.0-16.0); IMMATURE GRANULOCYTES 0.5 %; IMMATURE GRANULOCYTES ABSOLUTE 0.04 10/3/uL (0.0-0.11); LYMPHOCYTES 40.4 %; LYMPHOCYTES ABSOLUTE 3.22 10/3/uL (0.67-4.30); MEAN CORPUS HGB CONC 32.9 g/dL (32.0-36.0); MEAN CORPUSCULAR HEMOGLOB 29.3 pg (26.0-34.0); MEAN CORPUSCULAR VOLUME 89.1 fL (80-100); MEAN PLATELET VOLUME 9.2 fL (9.2-13.0); MONOCYTES 8.5 %; MONOCYTES ABSOLUTE 0.68 10/3/uL (0.21-1.20); NEUTROPHILS 48.2 %; NEUTROPHILS ABSOLUTE 3.84 10/3/uL (2.02-8.40); PLATELET COUNT 173 10/3/uL (150-400); RED CELL COUNT 3.93 10/6/uL (4.0-5.6)
[2016-12-16 06:55] LABS: MANUAL DIFF NO %
[2016-12-16 07:05] LABS: BUN (BLOOD UREA NITROGEN) 15 MG/DL (6-23); CHLORIDE, SERUM 99 MMOL/L (96-112); CO2 (CARBON DIOXIDE) 29 MMOL/L (24-34); CREATININE 1.35 MG/DL (0.55-1.02); GFR AFRICAN AMERICAN 48 ML/MIN (>=60); GFR NON AFRICAN AMERICAN 42 ML/MIN (>=60); GLUCOSE, SERUM 202 MG/DL (60-99); POTASSIUM, SERUM 4.1 MMOL/L (3.5-5.3); SODIUM, SERUM 135 MMOL/L (135-148)
[2016-12-17 16:31] LABS: BUN (BLOOD UREA NITROGEN) 13 MG/DL (6-23); CALCIUM, SERUM 8.6 MG/DL (8.5-10.4); CHLORIDE, SERUM 100 MMOL/L (96-112); CO2 (CARBON DIOXIDE) 28 MMOL/L (24-34); CREATININE 1.32 MG/DL (0.55-1.02); GFR AFRICAN AMERICAN 50 ML/MIN (>=60); GFR NON AFRICAN AMERICAN 43 ML/MIN (>=60); POTASSIUM, SERUM 4.1 MMOL/L (3.5-5.3); SODIUM, SERUM 135 MMOL/L (135-148)
[2016-12-17 16:33] LABS: GLUCOSE, SERUM 148 MG/DL (60-99)
[2016-12-19 05:12] LABS: BUN (BLOOD UREA NITROGEN) 16 MG/DL (6-23); CALCIUM, SERUM 9.3 MG/DL (8.5-10.4); CHLORIDE, SERUM 100 MMOL/L (96-112); CO2 (CARBON DIOXIDE) 25 MMOL/L (24-34); CREATININE 1.28 MG/DL (0.55-1.02); GFR AFRICAN AMERICAN 52 ML/MIN (>=60); GFR NON AFRICAN AMERICAN 44 ML/MIN (>=60); GLUCOSE, SERUM 172 MG/DL (60-99); POTASSIUM, SERUM 3.8 MMOL/L (3.5-5.3); SODIUM, SERUM 134 MMOL/L (135-148)
[2017-03-21] MEDS ORDERED: FLEXERIL5 MG PO (06:23)
[2017-03-21] MEDS ORDERED: EPIPEN0.3 IM (06:23)
[2017-03-21] MEDS ORDERED: NOVOPENMIX SC (06:24)
[2017-03-21] MEDS ORDERED: NOVOLOGMIX SC (06:25)
[2017-03-21] MEDS ORDERED: LANTUS SC (06:25)
[2017-03-21] MEDS ORDERED: NOR75 PO (06:26)
[2017-03-21] MEDS ORDERED: OXYCOD PO (06:26)
[2017-03-21] MEDS ORDERED: LYRICA100 MG PO (06:27)
[2017-03-21] MEDS ORDERED: ARMOUR THYRO180 MG PO (06:27)
[2017-03-23] MEDS ORDERED: INSNOVR SC (11:26)
[2017-03-23] MEDS ORDERED: ASAB PO (11:27)
[2017-03-23] MEDS ORDERED: NOVOLOG SQ (11:28)
== END 2016-12-20 16:32 | DRG 638 ==
LOC: ER 23:01 → 7NO 12-10 01:59
PROVIDERS: Internal Medicine; Nurse Practitioner Acute Care
PROC: 0HDNXZZ Extraction of Left Foot Skin, External Approach (ICD-10-PCS; principal; 2016-12-15)
DX: E11.621 Type 2 diabetes mellitus with foot ulcer (principal); N39.0 Urinary tract infection, site not specified; L89.622 Pressure ulcer of left heel, stage 2; E11.40 Type 2 diabetes mellitus with diabetic neuropathy, unspecified; E11.22 Type 2 diabetes mellitus with diabetic chronic kidney disease; I27.2 Other secondary pulmonary hypertension; Z68.41 Body mass index [BMI] 40.0-44.9, adult; E66.01 Morbid (severe) obesity due to excess calories; E11.65 Type 2 diabetes mellitus with hyperglycemia; Z79.4 Long term (current) use of insulin; E03.9 Hypothyroidism, unspecified; Z79.891 Long term (current) use of opiate analgesic; M79.7 Fibromyalgia; F32.9 Major depressive disorder, single episode, unspecified; F41.9 Anxiety disorder, unspecified; N18.3 Chronic kidney disease, stage 3 (moderate); Z90.49 Acquired absence of other specified parts of digestive tract; Z90.710 Acquired absence of both cervix and uterus; Z96.651 Presence of right artificial knee joint; I12.9 Hypertensive chronic kidney disease with stage 1 through stage 4 chronic kidney disease, or unspecified chronic kidney disease; G89.4 Chronic pain syndrome; Z89.422 Acquired absence of other left toe(s)
CPT/HCPCS: 71010; 73630-LT; 80048; 80053; 80202; 81001; 82962; 83605; 84145; 85025; 86140; 87040; 87070; 87077; 87086; 87150; 87186; 87205; 93923; 96365; 96375; 97110-GO; 97110-GP; 97116-GP; 97161-GP; 97166-GO; 97530-GP; 97535-GO; 99285; A9270-GY; G8978-CL-GP; G8979-CJ-GP; J1956; J2405; J3370